=== PATIENT | female | born 1935 | race African-American/Black ===

== ENCOUNTER 2020-06-22 21:34 | Emergency (ER) | payer MEDICARE, BC ==
[2020-06-22 22:07] LABS: #Monocytes 0.4 10x3/uL (0.0-1.1); #Neutrophils 9.3 10x3/uL (1.5-8.4); %Basophils 0.4 % (0.0-2.0); %Monocytes 3.3 % (0.0-10.0); %Neutrophils 84.5 % (40.0-75.0); Hemoglobin 13.6 g/dL (12.0-15.5); Mean Corpuscular HGB CONC 32.1 g/dL (32.0-36.0); Mean Corpuscular Hemoglobin 28.9 pg (27.0-33.0); Mean Platelet Volume 10.7 fl (7.4-10.4); Platelet Count 246 10x3/uL (150-450); RBC Distribution Width 14.4 % (11.5-14.5); Red Blood Cell (RBC) Count 4.71 10x6/uL (3.90-5.03)
[2020-06-22 22:21] LABS: ALT (SGPT) 14 U/L (8-55); AST (SGOT) 22 U/L (5-34); Albumin 4.1 g/dL (3.4-4.8); Alkaline Phosphatase 74 U/L (40-110); Anion Gap 20 mmol/L (10-20); BUN (Urea Nitrogen) 36 mg/dL (9.8-20.1); Bilirubin, Total 0.3 mg/dL (0.2-1.2); Calc. Creatinine Clearance 0 mL/min (70-130); Carbon Dioxide 20 mmol/L (23-31); Chloride 103 mmol/L (98-107); Globulin 3.2 g/dL (2.4-3.5); Glucose 151 mg/dL (83-110); Potassium 4.6 mmol/L (3.5-5.1); Protein, Total 7.3 g/dL (5.8-8.1); Sodium 138 mmol/L (136-145)
[2020-06-22 22:26] LABS: Calcium 12.4 mg/dL (7.8-10.44)
[2020-06-22 22:35] LABS: Bilirubin Neg (Negative); Blood, Urine 250 (Negative); Clarity Cloudy (Clear); Glucose, Urine (Dipstick) Normal (Negative); Ketone, Urine 5 mg/dL (Negative); Leukocyte 100 (Negative); Nitrite Positive (Negative); Protein, Urine (Dipstick) 100 mg/dl (Neg-Trace); Specific Gravity, Urine 1.015 (1.002-1.036)
[2020-06-22 22:49] LABS: RBC/HPF Greater than 50 HPF (0-3)
[2020-06-22 22:50] LABS: Squamous Epithelial 0-3 HPF (0-3)
[2020-06-22 22:51] LABS: Bacteria/HPF 1+ HPF (None Seen)
[2020-06-22 22:52] LABS: Mucous/LPF 2+ LPF (<2+)
[2020-06-22] MEDS ORDERED: cefTRIAXone\\ROCEPHIN 1 GM VIAL ONE (23:21)
[2020-06-22] MEDS ORDERED: diphenhydrAMINE 50 MG/ML VIAL ONE (23:37)
[2020-06-22] MEDS ORDERED: Metoclopramide HCl 10 MG/2 ML VIAL ONE (23:37)
[2020-06-23 01:04] LABS: ALT (SGPT) 14 U/L (8-55); AST (SGOT) 21 U/L (5-34); Alkaline Phosphatase 73 U/L (40-110); Anion Gap 17 mmol/L (10-20); BUN (Urea Nitrogen) 34 mg/dL (9.8-20.1); Bilirubin, Total 0.3 mg/dL (0.2-1.2); Calc. Creatinine Clearance 0 mL/min (70-130); Carbon Dioxide 21 mmol/L (23-31); Chloride 104 mmol/L (98-107); Glucose 153 mg/dL (83-110); Potassium 4.3 mmol/L (3.5-5.1); Sodium 138 mmol/L (136-145)
[2020-06-23 01:12] LABS: Calcium 12.1 mg/dL (7.8-10.44)
== END 2020-06-23 01:57 | disposition home or self-care (01) ==
LOC: CSHERS 21:34
DX: N39.0 Urinary tract infection, site not specified (principal); E86.0 Dehydration; E83.52 Hypercalcemia; N13.2 Hydronephrosis with renal and ureteral calculous obstruction; E11.9 Type 2 diabetes mellitus without complications; I10 Essential (primary) hypertension; Z79.84 Long term (current) use of oral hypoglycemic drugs
CPT/HCPCS: 36415; 51701; 74176; 80053; 81003; 81015; 85025; 87086; 96365; 96367; 96375; J0696; J1200; J2765

== ENCOUNTER 2021-03-04 10:13 | Inpatient (IN) | payer BC, MEDICARE ==
[2021-03-04 10:56] LABS: #Eosinphils 0.1 10x3/uL (0.0-0.5); #Monocytes 0.3 10x3/uL (0.0-1.1); #Neutrophils 4.1 10x3/uL (1.5-8.4); %Basophils 0.5 % (0.0-2.0); %Eosinophils 0.9 % (0.0-6.0); %Monocytes 3.9 % (0.0-10.0); %Neutrophils 62.2 % (40.0-75.0); Hemoglobin 12.6 g/dL (12.0-15.5); Mean Corpuscular HGB CONC 31.3 g/dL (32.0-36.0); Mean Corpuscular Hemoglobin 28.8 pg (27.0-33.0); Mean Corpuscular Volume 91.8 fl (81.6-98.3); Mean Platelet Volume 10.3 fl (7.4-10.4); Platelet Count 222 10x3/uL (150-450); RBC Distribution Width 15.9 % (11.5-14.5); Red Blood Cell (RBC) Count 4.38 10x6/uL (3.90-5.03); White Blood Cell (WBC) Count 6.7 10x3/uL (3.5-10.5)
[2021-03-04 11:13] LABS: Acetaminophen Less than 6.0 mcg/mL (10.0-30.0); Alcohol Less than 10 mg/dL (Less than 10); Salicylate Less than 8.0 mg/dL (15.0-30.0)
[2021-03-04 11:15] LABS: ALT (SGPT) 7 U/L (8-55); AST (SGOT) 10 U/L (5-34); Albumin 3.5 g/dL (3.4-4.8); Alkaline Phosphatase 47 U/L (40-110); Anion Gap 9 mmol/L (10-20); BUN (Urea Nitrogen) 16 mg/dL (9.8-20.1); Bilirubin, Total 0.2 mg/dL (0.2-1.2); Calc. Creatinine Clearance 0 mL/min (70-130); Calcium 10.2 mg/dL (7.8-10.44); Carbon Dioxide 24 mmol/L (23-31); Chloride 108 mmol/L (98-107); Glucose 174 mg/dL (83-110); Protein, Total 5.5 g/dL (5.8-8.1); Sodium 137 mmol/L (136-145)
[2021-03-04 13:45] LABS: SARS-CoV-2 NAA Rapid Test Not Detected (NotDetected)
[2021-03-04 14:02] LABS: Troponin I Less than 0.010 ng/mL (< 0.028)
[2021-03-04 14:02] LABS: Amphetamine Not Detected (NotDetected); Barbiturates Screen Not Detected (NotDetected); Benzodiazepine Screen Not Detected (NotDetected); Cocaine Metabolite Screen Not Detected (NotDetected); Methadone Not Detected (NotDetected); Methamphetamine Not Detected (NotDetected); Opiate Screen Not Detected (NotDetected); Oxycodone Screen Not Detected (NotDetected); Phencyclidine (PCP) Not Detected (NotDetected); THC/Cannabinoid Screen Not Detected (NotDetected); Tricyclic Screen Not Detected (NotDetected)
[2021-03-04 14:16] LABS: Bilirubin Neg (Negative); Blood, Urine 10 (Negative); Glucose, Urine (Dipstick) Normal (Negative); Ketone, Urine Negative (Negative); Leukocyte 500 (Negative); Nitrite Negative (Negative); Protein, Urine (Dipstick) 15 mg/dl (Neg-Trace); Urobilinogen Normal mg/dL (Less than 2)
[2021-03-04 14:17] LABS: Clarity Hazy (Clear)
[2021-03-04 14:23] LABS: RBC/HPF 0-3 HPF (0-3)
[2021-03-04 14:24] LABS: Bacteria/HPF 3+ HPF (None Seen); Mucous/LPF Rare LPF (<2+); Squamous Epithelial 0-3 HPF (0-3)
[2021-03-04] MEDS ORDERED: Ondansetron ODT 4 MG TAB PO PRN (14:39)
[2021-03-04] MEDS ORDERED: Senokot S 8.6-50 MG TAB PO PRN (14:39)
[2021-03-04] MEDS ORDERED: Ondansetron PF 4 MG/2 ML Vial IVP PRN (14:39)
[2021-03-04] MEDS ORDERED: hydrALAZINE 20 MG/ML VIAL SLOW IVP PRN (14:39)
[2021-03-04] MEDS ORDERED: Bisacodyl 5 MG TAB PO PRN (14:39)
[2021-03-04] MEDS ORDERED: Acetaminophen 650 MG Suppository PR PRN (14:39)
[2021-03-04] MEDS ORDERED: Acetaminophen 325 MG TAB PO PRN (14:39)
[2021-03-04] MEDS ORDERED: Aspirin 325 mg Enteric Coated Tablet PO SCH (15:30)
[2021-03-04 17:10] LABS: Troponin I Less than 0.010 ng/mL (< 0.028)
[2021-03-04] MEDS: Atorvastatin Calcium 40 MG TAB PO SCH (20:46)
[2021-03-04] MEDS ORDERED: Enoxaparin Sodium 30 MG/0.3 ML SYRINGE SC SCH (21:00)
[2021-03-04] MEDS ORDERED: Heparin 5,000 UNITS/ML VIAL SC SCH (21:00)
[2021-03-04 23:42] VITALS: BMI 29.6
[2021-03-04] MEDS: cefTRIAXone\\ROCEPHIN 1 GM in Sodium Chloride 0.9% 100 ML IVPB SCH (23:54)
[2021-03-05 05:36] LABS: Anion Gap 11 mmol/L (10-20); BUN (Urea Nitrogen) 16 mg/dL (9.8-20.1); Calc. Creatinine Clearance 52 mL/min (70-130); Calcium 11.1 mg/dL (7.8-10.44); Carbon Dioxide 23 mmol/L (23-31); Chloride 112 mmol/L (98-107); Cholesterol 202 mg/dl (< 200 Desired); Glucose 104 mg/dL (83-110); HDL Cholesterol 50 mg/dL (>60 Neg Risk); LDL Cholesterol, Calculated 134 mg/dL; Potassium 4.2 mmol/L (3.5-5.1); Sodium 142 mmol/L (136-145); Triglycerides 89 mg/dL (Less than 150)
[2021-03-05 05:52] LABS: #Basophils 0.1 10x3/uL (0.0-0.2); #Monocytes 0.6 10x3/uL (0.0-1.1); #Neutrophils 5.4 10x3/uL (1.5-8.4); %Basophils 0.6 % (0.0-2.0); %Eosinophils 0.5 % (0.0-6.0); %Lymphocytes 29.2 % (18.0-47.0); %Monocytes 7.1 % (0.0-10.0); %Neutrophils 62.1 % (40.0-75.0); Hemoglobin 13.8 g/dL (12.0-15.5); Mean Corpuscular HGB CONC 31.4 g/dL (32.0-36.0); Mean Corpuscular Hemoglobin 28.5 pg (27.0-33.0); Mean Corpuscular Volume 90.7 fl (81.6-98.3); Mean Platelet Volume 10.6 fl (7.4-10.4); Platelet Count 236 10x3/uL (150-450); Red Blood Cell (RBC) Count 4.85 10x6/uL (3.90-5.03); White Blood Cell (WBC) Count 8.6 10x3/uL (3.5-10.5)
[2021-03-05] MEDS: Aspirin 81 mg Enteric Coated Tablet PO SCH ×2 (09:21→09:22)
[2021-03-05] MEDS ORDERED: metFORMIN 500 MG TAB PO SCH ×2 (10:15→15:00)
[2021-03-05] MEDS ORDERED: Lisinopril 20 MG TAB PO SCH ×2 (10:15→15:00)
[2021-03-05] MEDS ORDERED: Metoprolol Tartrate 25 MG TAB PO SCH ×2 (10:15→15:00)
[2021-03-05] MEDS: cefTRIAXone\\ROCEPHIN 1 GM in Sodium Chloride 0.9% 100 ML IVPB SCH (15:19)
[2021-03-05] MEDS: Sodium Chloride 0.9% 1,000 ML IV SCH (20:04)
[2021-03-05] MEDS ORDERED: Enoxaparin Sodium 40 MG/0.4 ML SYRINGE SC SCH (21:00)
[2021-03-05] MEDS: Metoprolol Tartrate 25 MG TAB PO SCH (21:18)
[2021-03-05] MEDS: Atorvastatin Calcium 40 MG TAB PO SCH (21:21)
[2021-03-06 04:17] LABS: #Eosinphils 0.1 10x3/uL (0.0-0.5); #Monocytes 0.5 10x3/uL (0.0-1.1); %Basophils 0.6 % (0.0-2.0); %Eosinophils 1.1 % (0.0-6.0); %Lymphocytes 28.1 % (18.0-47.0); %Monocytes 7.5 % (0.0-10.0); %Neutrophils 62.4 % (40.0-75.0); Hemoglobin 12.6 g/dL (12.0-15.5); Mean Corpuscular HGB CONC 31.6 g/dL (32.0-36.0); Mean Corpuscular Hemoglobin 28.7 pg (27.0-33.0); Mean Corpuscular Volume 90.9 fl (81.6-98.3); Mean Platelet Volume 10.4 fl (7.4-10.4); Platelet Count 206 10x3/uL (150-450); RBC Distribution Width 15.9 % (11.5-14.5); Red Blood Cell (RBC) Count 4.39 10x6/uL (3.90-5.03); White Blood Cell (WBC) Count 6.4 10x3/uL (3.5-10.5)
[2021-03-06 04:31] LABS: Anion Gap 11 mmol/L (10-20); BUN (Urea Nitrogen) 15 mg/dL (9.8-20.1); Calc. Creatinine Clearance 62 mL/min (70-130); Calcium 10.1 mg/dL (7.8-10.44); Carbon Dioxide 21 mmol/L (23-31); Chloride 112 mmol/L (98-107); Glucose 105 mg/dL (83-110); Potassium 3.7 mmol/L (3.5-5.1); Sodium 140 mmol/L (136-145)
[2021-03-06] MEDS: Sodium Chloride 0.9% 1,000 ML IV SCH (06:33)
[2021-03-06] MEDS ORDERED: ENALAPRIL MALEATE 20 MG PO SCH (09:00)
[2021-03-06] MEDS ORDERED: metFORMIN 500 MG TAB PO SCH (09:00)
[2021-03-06] MEDS: Metoprolol Tartrate 25 MG TAB PO SCH (09:14)
[2021-03-06] MEDS: Aspirin 81 mg Enteric Coated Tablet PO SCH (09:14)
[2021-03-06 13:46] VITALS: BP 165/98; TEMP 99.4
== END 2021-03-06 17:14 | disposition home or self-care (01) | DRG 689 ==
LOC: CSHERS 10:13 → CSHTELE 20:06
PROVIDERS: ADMIT Student in an Organized Health Care Education/Training Program; ATTEND Internal Medicine
DX: N30.00 Acute cystitis without hematuria (principal); G93.41 Metabolic encephalopathy; I10 Essential (primary) hypertension; E11.9 Type 2 diabetes mellitus without complications; Z20.822 Contact with and (suspected) exposure to COVID-19; E83.52 Hypercalcemia; M17.11 Unilateral primary osteoarthritis, right knee; N28.9 Disorder of kidney and ureter, unspecified; K59.00 Constipation, unspecified; Z88.0 Allergy status to penicillin; Z79.899 Other long term (current) drug therapy; Z79.2 Long term (current) use of antibiotics
CPT/HCPCS: 36415; 36416; 70450; 70496; 70498; 70551; 71045; 80048; 80053; 80061; 80306; 80307; 81003; 81015; 83605; 84484; 85025; 93005; 93306; 94760; 94762; J0696; J1650; J3490; J7050; U0002

== ENCOUNTER 2021-07-22 12:10 | Observation (INO) | payer MEDICARE, BC ==
[2021-07-22 13:12] LABS: Bilirubin Neg (Negative); Blood, Urine 250 (Negative); Clarity Cloudy (Clear); Glucose, Urine (Dipstick) Normal (Negative); Ketone, Urine Negative (Negative); Leukocyte 500 (Negative); Nitrite Negative (Negative); Protein, Urine (Dipstick) 500 mg/dl (Neg-Trace); Specific Gravity, Urine 1.015 (1.002-1.036); Urobilinogen Normal mg/dL (Less than 2)
[2021-07-22 13:28] LABS: #Eosinphils 0.1 10x3/uL (0.0-0.5); #Monocytes 0.6 10x3/uL (0.0-1.1); #Neutrophils 7.6 10x3/uL (1.5-8.4); %Basophils 0.4 % (0.0-2.0); %Eosinophils 0.9 % (0.0-6.0); %Neutrophils 74.8 % (40.0-75.0); Hemoglobin 12.6 g/dL (12.0-15.5); Mean Corpuscular HGB CONC 32.2 g/dL (32.0-36.0); Mean Corpuscular Hemoglobin 28.8 pg (27.0-33.0); Mean Corpuscular Volume 89.3 fl (81.6-98.3); Platelet Count 210 10x3/uL (150-450); RBC Distribution Width 15.4 % (11.5-14.5); Red Blood Cell (RBC) Count 4.38 10x6/uL (3.90-5.03); White Blood Cell (WBC) Count 10.2 10x3/uL (3.5-10.5)
[2021-07-22 13:47] LABS: Bacteria/HPF 4+ HPF (None Seen); Squamous Epithelial 0-3 HPF (0-3); WBC/HPF Greater than 50 HPF (0-3)
[2021-07-22 13:49] LABS: ALT (SGPT) 22 U/L (8-55); AST (SGOT) 17 U/L (5-34); Albumin 3.7 g/dL (3.4-4.8); Alkaline Phosphatase 84 U/L (40-110); Anion Gap 12 mmol/L (10-20); BUN (Urea Nitrogen) 20 mg/dL (9.8-20.1); Bilirubin, Total 0.4 mg/dL (0.2-1.2); CK (CPK) 91 U/L (29-168); Calc. Creatinine Clearance 0 mL/min (70-130); Calcium 10.7 mg/dL (7.8-10.44); Carbon Dioxide 25 mmol/L (23-31); Chloride 108 mmol/L (98-107); Globulin 2.6 g/dL (2.4-3.5); Glucose 111 mg/dL (83-110); Magnesium 1.9 mg/dL (1.6-2.6); Potassium 3.7 mmol/L (3.5-5.1); Protein, Total 6.3 g/dL (5.8-8.1); Sodium 141 mmol/L (136-145)
[2021-07-22] MEDS ORDERED: cefTRIAXone\\ROCEPHIN 2 GM VIAL ONE (14:04)
[2021-07-22 19:08] LABS: SARS-CoV-2 NAA Rapid Test Not Detected (NotDetected)
[2021-07-22] MEDS ORDERED: Iopamidol 30 ML ONE (19:24)
[2021-07-22] MEDS ORDERED: Fentanyl 100 MCG/2 ML VIAL ONE ×2 (19:27→20:37)
[2021-07-22] MEDS ORDERED: Lidocaine 1% PF 5 ML VIAL ONE (19:27)
[2021-07-22] MEDS ORDERED: PROPOFOL 20 ML ONE ×2 (19:27→20:15)
[2021-07-22] MEDS ORDERED: Ondansetron PF 4 MG/2 ML Vial ONE (19:27)
[2021-07-22] MEDS ORDERED: Dexamethasone 4 mg/ml Vial ONE (19:27)
[2021-07-22] MEDS ORDERED: PHENYLEPHRINE-NS 100 MCG/ML 10 ML SYRINGE ONE (19:32)
[2021-07-22] MEDS ORDERED: Glycopyrrolate 0.2 MG/ML 5 ML SYRINGE ONE (20:30)
[2021-07-22] MEDS ORDERED: Labetalol HCl 100 MG/20 ML VIAL ONE (21:05)
[2021-07-22] MEDS ORDERED: Mag-Al 1200 mg/1200 mg/30 ML UDCUP PO PRN (21:22)
[2021-07-22] MEDS ORDERED: Oxybutynin 5 MG TAB PO PRN (21:22)
[2021-07-22] MEDS ORDERED: Bisacodyl 10 MG SUPP PR PRN (21:22)
[2021-07-22] MEDS ORDERED: diphenhydrAMINE 25 MG CAP PO PRN (21:22)
[2021-07-22] MEDS ORDERED: HYDROcodone/Acetaminophen 5/325 mg Tablet PO PRN (21:22)
[2021-07-22] MEDS ORDERED: Morphine 2 MG/ML VIAL SLOW IVP PRN (21:22)
[2021-07-22] MEDS ORDERED: Ondansetron PF 4 MG/2 ML Vial IVP PRN (21:22)
[2021-07-22] MEDS ORDERED: hydrALAZINE 20 MG/ML VIAL SLOW IVP PRN (21:22)
[2021-07-22] MEDS ORDERED: Phenazopyridine HCl 97.5 MG TABLET PO PRN (21:22)
[2021-07-22] MEDS ORDERED: Acetaminophen 500 MG TAB PO PRN (21:22)
[2021-07-22 22:04] VITALS: BMI 29.8
[2021-07-22] MEDS ORDERED: Metoprolol Tartrate 25 MG TAB PO SCH (22:45)
[2021-07-23] MEDS ORDERED: Lisinopril 20 MG TAB PO SCH (09:00)
[2021-07-23] MEDS ORDERED: Metoprolol Tartrate 25 MG TAB PO SCH (09:00)
[2021-07-23 09:17] VITALS: BP 160/72; TEMP 96.2
== END 2021-07-23 10:45 | disposition home or self-care (01) ==
LOC: CSHERS 12:10 → CSHTELE 21:18
PROVIDERS: ADMIT Urology; ATTEND Urology
PROC: 0T768DZ Dilation of Right Ureter with Intraluminal Device, Via Natural or Artificial Opening Endoscopic (ICD-10-PCS; principal; 2021-07-22)
DX: N13.6 Pyonephrosis (principal); N21.0 Calculus in bladder; I10 Essential (primary) hypertension; E11.9 Type 2 diabetes mellitus without complications; E21.3 Hyperparathyroidism, unspecified; K80.20 Calculus of gallbladder without cholecystitis without obstruction; K76.89 Other specified diseases of liver; K57.30 Diverticulosis of large intestine without perforation or abscess without bleeding; Z87.11 Personal history of peptic ulcer disease; Z79.2 Long term (current) use of antibiotics; Z79.84 Long term (current) use of oral hypoglycemic drugs; Z79.899 Other long term (current) drug therapy; Z88.0 Allergy status to penicillin; Z20.822 Contact with and (suspected) exposure to COVID-19; N30.01 Acute cystitis with hematuria; R31.9 Hematuria, unspecified
CPT/HCPCS: 51600; 51701; 52332; 71045; 74176; 74430; 82550; 82962; 83605; 83735; 84484; 93005; 96374; 99285; C2617; G0378 ×2; U0002; 36415; 36416; 80053; 81003; 81015; 84443; 85025; 87077; 87086; 87186; 93010; 99213; G0463; J0696; J1100; J2405; J2704; J3010; Q9967